=== PATIENT | male | born 1980 | race Hispanic/Latino ===

== ENCOUNTER 2016-09-15 13:31 | Emergency (ER) | payer OTHER ==
[~2016-09-15 13:31] MED LIST: BACLOFEN10 M1 PO; MEDROL4 M2 PO; TRAMADOL HCL50 M1 PO
[2016-09-15 13:35] VITALS: BP 133/93
[2016-09-15] MEDS ORDERED: VALACYCLOVIR500 M1 PO (15:15)
[2016-09-15] MEDS ORDERED: VICODIN 5-3001 EACH PO (15:24)
--- NOTE | 2016-09-15 15:25 | ED NECK/BACK PAIN COMPLAINT ---
History of Present Illness General Chief Complaint: Low Back Pain/Injury Stated Complaint: LBP/CHRONIC Source: patient, old records Exam Limitations: no limitations Vital Signs & Intake/Output Vital Signs & Intake/Output Vital Signs Date Time Temp Pulse Resp B/P Pulse O2 O2 Flow FiO2 Ox Delivery Rate 09/15 1335 98.0 80 20 133/93 98 Room Air Allergies Coded Allergies: No Known Drug Allergies (02/16/16) Uncoded Allergies: FRUIT (Severe, SOB, SWELLING 07/14/12) Reconcile Medications Hydrocodone/Acetaminophen (Vicodin 5-300 MG Tablet) 5 MG-300 MG TABLET 1 TAB PO Q6P PRN PAIN Valacyclovir HCl (Valacyclovir) 500 MG TABLET 1 TAB PO DAILY HERPES (Reported ) Triage Note: PT PRESENTS TO ER FOR CHRONIC LOW BACK PAIN. PT STATES HE WAS GIVEN VICODIN WHICH HELPED BUT NOW HE RAN OUT. PT STATES HE WAS SUPPOSE TO FOLLOW UP WITH HIS DOCTOR BUT SHE NEVER ANSWER. PT STATES "I AM SUPPOSE TO HAVE SURGERY BUT MY FMLA DIDN'T GET APPROVED AT SURGERY SO I HAVE TO WAIT FOR THE SUMMER." PT STATES "I TOOK ADVIL IT DOESN'T HELP" Triage Nurses Notes Reviewed? yes HPI: pATIENT PRESENTS WITH ACUTE EXACERBATION OF CHRONIC BACK PAIN. pATIENT STATES HE HAS KNOWN DISC PROBLEMS AND IS DUE TO HAVE SURGERY THIS SUMMER. pATIENT WAS TAKING vICODIN FOR HIS PAIN. hE RAN OUT OF THEM. pATIENT CALLED HIS SURGEON WHO STATED THAT HE NEEDED TO SEE HIS PRIMARY CARE PHYSICIAN FOR ANOTHER REFERRAL TO A SURGEON BEFORE HE COULD PRESCRIBE MORE PAIN MEDICATION. pATIENT RAN OUT OF vICODIN 2 DAYS AGO. pATIENT IS BEEN TRYING TO TAKE lEVAQUIN WITHOUT ANY RELIEF. tHE PAIN IS ACHING AND THROBBING. pAIN IS CONSTANT. tHE PAIN INCREASED WITH MOVEMENT. tHERE IS NO RADIATION OF PAIN. pAIN IS 1010. tHERE IS NO INCONTINENCE OF BOWEL OR BLADDER. Past History Travel History Traveled to [place] past 21 day No Medical History Any Pertinent Medical History? see below for history Musculoskeletal: CHRONIC BACK PAIN Surgical History Surgical History: non-contributory Psychosocial History What is your primary language Maltese Tobacco Use: Never used ETOH Use: occasional use Illicit Drug Use: denies illicit drug use Family History Hx Contributory? No Review of Systems Review of Systems Constitutional: Reports: no symptoms. Eyes: Reports: no symptoms. Respiratory: Reports: no symptoms. Cardiovascular: Reports: no symptoms. Musculoskeletal: Reports: see HPI, back pain. Neurological/Psychological: Reports: no symptoms. Physical Exam Physical Exam General Appearance: well developed/nourished, alert, awake, moderate distress Head: atraumatic Eyes: Bilateral: PERRL, EOMI. Ears, Nose, Throat, Mouth: hearing grossly normal Neck: normal inspection, supple, full range of motion Respiratory: normal breath sounds, chest non-tender, no respiratory distress, lungs clear Cardiovascular: regular rate/rhythm, normal peripheral pulses Gastrointestinal: normal bowel sounds, soft, non-tender, no organomegaly Extremities: non-tender, normal range of motion Straight Leg Raising: Right: Negative. Left: Negative. Neurologic/Psych: no motor/sensory deficits, awake, alert, oriented x 3, normal gait, normal mood/affect Progress Differential Diagnosis: herniated disc, myofascial strain, T/L spine injury Plan of Care: PAIN CONTROL AND FOLLOW UP WITH HIS SURGEON Departure Departure Disposition: HOME OR SELF CARE Condition: Stable Clinical Impression Primary Impression: Back pain Referrals: FARHAT QUESADA,STANFORD Leahy (PCP/Family) Additional Instructions: FOLLOW UP WITH YOUR REGULAR DOCTOR RETURN NEEDED OR FOR ANY COCNERS Departure Forms: Customer Survey General Discharge Information Prescriptions: Current Visit Scripts Hydrocodone/Acetaminophen (Vicodin 5-300 MG Tablet) 1 TAB PO Q6P PRN PAIN #20 TAB
== END 2016-09-15 15:37 ==
LOC: ERH 13:31
DX: M54.5 Low back pain (principal)

== ENCOUNTER 2017-12-26 12:38 | Emergency (ER) | payer OTHER ==
[~2017-12-26] VITALS: Ht 172.7 cm; Wt 93.0 kg
[~2017-12-26 12:38] MED LIST changes: +NYSTATIN15 G1 TOP; +VALACYCLOVIR500 M1 PO; +VICODIN 5-3001 EACH PO; +ZITHROMAX250 M2 PO
[2017-12-26 12:47] VITALS: BP 130/80
== END 2017-12-26 13:30 | disposition admitted as inpatient to this hospital (09) ==
LOC: ERH 12:38
DX: J02.9 Acute pharyngitis, unspecified (principal)